=== PATIENT | male | born 1980 | race Caucasian/White ===

== ENCOUNTER → 2017-12-30 | Outpatient (REF) | payer OTHER | LOC: ZZSENDIN 12:16 | PROVIDERS: ATTEND Physician Assistant | DX: D22.9 Melanocytic nevi, unspecified (principal) | CPT/HCPCS: 88305; 88313; 88344 ==

== ENCOUNTER 2018-10-27 12:55 | Emergency (ER) | payer OTHER ==
--- NOTE | 2018-10-27 13:14 | ER Report ---
History and Physical Time Seen By MD: 13:14 Hx. of Stated Complaint: pt reports pain in L chest since tuesday, denies other symptoms , feels "like something is moving in there" HPI/ROS CHIEF COMPLAINT: Chest pain HISTORY OF PRESENT ILLNESS: 38-year-old male patient presents to the emergency room with complaint of left-sided chest pain. Patient states pain seems to come and go. He notices it the most when he is sitting down at his desk. Patient denies any shortness of breath, nausea, vomiting or diarrhea. Patient states there is nothing seems to make the pain better or worse. He states that he is able to go out and be active without eliciting any of the chest pain. He denies taking any medication for this. Patient is concerned as his father recently had a four-vessel CABG and at several points throughout the year was quite ill. REVIEW OF SYSTEMS: Respiratory: No cough, no dyspnea. Cardiovascular: As noted above Gastrointestinal: No vomiting, no abdominal pain. Musculoskeletal: No back pain. Allergies: Coded Allergies: Penicillins (Verified Allergy, Mild, UNKNOWN, 06/05/14) Sulfa (Sulfonamide Antibiotics) (Verified Allergy, Mild, FEVER, 06/05/14) Home Meds No Active Prescriptions or Reported Meds Past Medical/Surgical History Patient has a past medical history of hyperlipidemia, fractures. Patient has a surgical history of bilateral knee surgery 3. Reviewed Nurses Notes: Yes Hx Smoking: No Smoking Status: Never Smoker Hx Substance Use Disorder: No Hx Alcohol Use: No Constitutional Vital Sign - Last 24 Hours 10/27/18 10/27/18 10/27/18 10/27/18 12:59 13:00 13:10 13:25 Temp 98.7 Pulse 77 87 81 Resp 16 12 14 B/P (MAP) 132/92 132/92 (105) 122/91 (101) Pulse Ox 96 96 95 O2 Delivery Room Air 10/27/18 10/27/18 10/27/18 10/27/18 13:30 13:40 13:55 14:00 Pulse 75 78 Resp 14 7 B/P (MAP) 119/91 (100) 124/84 (97) Pulse Ox 93 92 10/27/18 14:10 Pulse 87 Resp 9 Pulse Ox 91 Physical Exam General Appearance: The patient is alert, has no immediate need for airway protection and no current signs of toxicity. Respiratory: Chest is non tender, lungs are clear to auscultation. Cardiac: regular rate and rhythm Gastrointestinal: Abdomen is soft and non tender, no masses, bowel sounds normal. Musculoskeletal: Neck: Neck is supple and non tender. Extremities have full range of motion and are non tender. Skin: No rashes or lesions. DIFFERENTIAL DIAGNOSIS: After history and physical exam differential diagnosis was considered for chest pain including but not limited to myocardial ischemia, pericarditis pulmonary embolus, chest wall pain, pleural inflammation and pulmonary infectious causes. Medical Decision Making Data Points Result Diagram: 10/27/18 1327 10/27/18 1327 Laboratory Hematology Test 10/27/18 13:27 10/27/18 14:17 Red Blood Count 5.88 M/uL (4.00-5.60) Mean Corpuscular Volume 85.1 fL (80.0-96.0) Mean Corpuscular Hemoglobin 29.0 pg (26.0-33.0) Mean Corpuscular Hemoglobin Concent 34.1 g/dL (32.0-36.0) Red Cell Distribution Width 12.6 % (11.5-14.5) Mean Platelet Volume 6.1 fL (7.2-11.1) Neutrophils (%) (Auto) 58.1 % (39.4-72.5) Lymphocytes (%) (Auto) 31.3 % (17.6-49.6) Monocytes (%) (Auto) 9.3 % (4.1-12.4) Eosinophils (%) (Auto) 0.8 % (0.4-6.7) Basophils (%) (Auto) 0.5 % (0.3-1.4) Nucleated RBC Relative Count (auto) 0.1 /100WBC Neutrophils # (Auto) 3.9 K/uL (2.0-7.4) Lymphocytes # (Auto) 2.1 K/uL (1.3-3.6) Monocytes # (Auto) 0.6 K/uL (0.3-1.0) Eosinophils # (Auto) 0.1 K/uL (0.0-0.5) Basophils # (Auto) 0.0 K/uL (0.0-0.1) Nucleated RBC Absolute Count (auto) 0.01 K/uL Sodium Level 140 mmol/L (137-145) Potassium Level 4.2 mmol/L (3.5-5.0) Chloride Level 102 mmol/L (98-107) Carbon Dioxide Level 26 mmol/L (22-30) Blood Urea Nitrogen 12 mg/dl (9-21) Creatinine 0.90 mg/dl (0.66-1.25) Glomerular Filtration Rate Calc > 60.0 Random Glucose 99 mg/dl (75-110) Calcium Level 9.8 mg/dl (8.4-10.2) Total Bilirubin 0.4 mg/dl (0.2-1.3) Aspartate Amino Transf (AST/SGOT) 26 U/L (0-35) Alanine Aminotransferase (ALT/SGPT) 36 U/L (0-56) Alkaline Phosphatase 89 U/L (0-126) Troponin I < 0.012 ng/ml Total Protein 8.9 g/dl (6.3-8.2) Albumin 4.8 g/dl (3.5-5.0) Amylase Level 88 U/L (0-110) Lipase 80 U/L (23-300) Helicobacter pylori IgG Antibody Negative (NEGATIVE) Urine Color Straw Urine Clarity Clear Urine pH 6.0 pH (4.8-9.5) Urine Specific [place] 1.006 Urine Protein Negative mg/dL (NEGATIVE) Urine Glucose (UA) Negative mg/dL (NEGATIVE) Urine Ketones Negative mg/dL (NEGATIVE) Urine Blood Negative (NEGATIVE) Urine Nitrite Negative (NEGATIVE) Urine Bilirubin Negative (NEGATIVE) Urine Urobilinogen Negative mg/dL (0.2-1.9) Urine Leukocyte Esterase Negative (NEGATIVE) Urine RBC <1 /HPF (0-2/HPF) Urine WBC 1 /HPF (0-5/HPF) Urine Squamous Epithelial Cells None /LPF (</=FEW) Urine Bacteria Negative /HPF (NONE-FEW) Urine Mucus None /HPF (NONE-FEW) Chemistry Test 10/27/18 13:27 10/27/18 14:17 White Blood Count 6.8 k/uL (4.5-11.0) Red Blood Count 5.88 M/uL (4.00-5.60) Hemoglobin 17.0 g/dL (14.0-18.0) Hematocrit 50.0 % (42.0-52.0) Mean Corpuscular Volume 85.1 fL (80.0-96.0) Mean Corpuscular Hemoglobin 29.0 pg (26.0-33.0) Mean Corpuscular Hemoglobin Concent 34.1 g/dL (32.0-36.0) Red Cell Distribution Width 12.6 % (11.5-14.5) Platelet Count 324 K/uL (150-450) Mean Platelet Volume 6.1 fL (7.2-11.1) Neutrophils (%) (Auto) 58.1 % (39.4-72.5) Lymphocytes (%) (Auto) 31.3 % (17.6-49.6) Monocytes (%) (Auto) 9.3 % (4.1-12.4) Eosinophils (%) (Auto) 0.8 % (0.4-6.7) Basophils (%) (Auto) 0.5 % (0.3-1.4) Nucleated RBC Relative Count (auto) 0.1 /100WBC Neutrophils # (Auto) 3.9 K/uL (2.0-7.4) Lymphocytes # (Auto) 2.1 K/uL (1.3-3.6) Monocytes # (Auto) 0.6 K/uL (0.3-1.0) Eosinophils # (Auto) 0.1 K/uL (0.0-0.5) Basophils # (Auto) 0.0 K/uL (0.0-0.1) Nucleated RBC Absolute Count (auto) 0.01 K/uL Glomerular Filtration Rate Calc > 60.0 Calcium Level 9.8 mg/dl (8.4-10.2) Total Bilirubin 0.4 mg/dl (0.2-1.3) Aspartate Amino Transf (AST/SGOT) 26 U/L (0-35) Alanine Aminotransferase (ALT/SGPT) 36 U/L (0-56) Alkaline Phosphatase 89 U/L (0-126) Troponin I < 0.012 ng/ml Total Protein 8.9 g/dl (6.3-8.2) Albumin 4.8 g/dl (3.5-5.0) Amylase Level 88 U/L (0-110) Lipase 80 U/L (23-300) Helicobacter pylori IgG Antibody Negative (NEGATIVE) Urine Color Straw Urine Clarity Clear Urine pH 6.0 pH (4.8-9.5) Urine Specific [place] 1.006 Urine Protein Negative mg/dL (NEGATIVE) Urine Glucose (UA) Negative mg/dL (NEGATIVE) Urine Ketones Negative mg/dL (NEGATIVE) Urine Blood Negative (NEGATIVE) Urine Nitrite Negative (NEGATIVE) Urine Bilirubin Negative (NEGATIVE) Urine Urobilinogen Negative mg/dL (0.2-1.9) Urine Leukocyte Esterase Negative (NEGATIVE) Urine RBC <1 /HPF (0-2/HPF) Urine WBC 1 /HPF (0-5/HPF) Urine Squamous Epithelial Cells None /LPF (</=FEW) Urine Bacteria Negative /HPF (NONE-FEW) Urine Mucus None /HPF (NONE-FEW) Urinalysis Test 10/27/18 14:17 Urine Color Straw Urine Clarity Clear Urine pH 6.0 pH (4.8-9.5) Urine Specific [place] 1.006 Urine Protein Negative mg/dL (NEGATIVE) Urine Glucose (UA) Negative mg/dL (NEGATIVE) Urine Ketones Negative mg/dL (NEGATIVE) Urine Blood Negative (NEGATIVE) Urine Nitrite Negative (NEGATIVE) Urine Bilirubin Negative (NEGATIVE) Urine Urobilinogen Negative mg/dL (0.2-1.9) Urine Leukocyte Esterase Negative (NEGATIVE) Urine RBC <1 /HPF (0-2/HPF) Urine WBC 1 /HPF (0-5/HPF) Urine Squamous Epithelial Cells None /LPF (</=FEW) Urine Bacteria Negative /HPF (NONE-FEW) Urine Mucus None /HPF (NONE-FEW) EKG/Imaging EKG Interpretation 12 lead EKG: Rhythm: normal sinus rhythm with sinus arrhythmia, ventricular rate of 75 bpm [place]: normal QRS: normal ST segments: normal Imaging Exam type: CHEST PA LAT History: Chest Pain Comparison: None. Findings: The lungs are free of acute effusions infiltrates or edema. There is no evidence of a pneumothorax or pneumomediastinum. The cardiac swelling is normal in size. The trachea is midline. IMPRESSION: 1. No acute cardiac pulmonary process is seen Report Dictated By: Zahida Mojica MD at 10/27/2018 1:46 PM Report E-Signed By: Zahida Mojica MD at 10/27/2018 1:47 PM ED Course/Re-evaluation ED Course Patient was admitted to an exam room, history and physical were obtained. Differ ential diagnoses were considered. On examination lungs are clear, heart is regular, abdomen is soft nontender. Patient had some mild tenderness to palpation of the left side of the chest. A CBC, CMP, troponin, EKG, urinalysis, chest x-ray were done. EKG showed a normal sinus rhythm with sinus arrhythmia, chest x-ray was negative. Labs were unremarkable. I discussed findings with the patient and his . I believe that this could very well be a strain of the pectoralis muscle on the left side. The reason he is having less pain with work is that the muscles loosened up and is able to reduce activities. It is my thought that the pain is worse when he is sitting down as a muscle tightens up. We will go ahead and discharge patient home at this time. He states Tylenol or ibuprofen as if pain. He is follow-up with his primary care provider in the next week. He is to return to emergency room if condition worsens. Patient verbalized understanding and agreement with plan. Decision to Disposition Date: Oct 27, 2018 Decision to Disposition Time: 14:20 Depart Departure Latest Vital Signs Vital Signs Date Time Temp Pulse Resp B/P (MAP) Pulse Ox O2 Delivery O2 Flow Rate FiO2 10/27/18 14:10 87 9 91 10/27/18 14:00 124/84 (97) 10/27/18 12:59 98.7 Room Air Impression: Primary Impression: Chest pain Condition: Improved Disposition: HOME OR SELF-CARE New Scripts No Active Prescriptions or Reported Meds Patient Instructions: Chest Pain (ED) Additional Instructions: Increase fluid intake. Get plenty of rest. Follow up with your primary care provider in the next week. I think that this is likely a muscle strain that seems to tighten up when you are sitting down. Take Tylenol or Ibuprofen as needed for pain. Return to the ER if condition worsens. Problem Qualifiers Primary Impression: Chest pain Chest pain type: other chest pain Qualified Codes: R07.89 - Other chest pain MIREYA CUI Oct 27, 2018 13:14
[2018-10-27] MEDS ORDERED: ASPIRIN 81 MG CHEW PO ONE (13:20)
[2018-10-27 13:37] LABS: PLATELET COUNT, AUTOMATED 324 K/uL (150-450)
--- NOTE | 2018-10-27 13:45 | EKG ---
FACILITY: [facility] [place] PATIENT NAME: HALEIGH TRACY : [id number] MR: [id number] V: [id number] EXAM DATE: ORDERING PHYSICIAN: MIREYA CUI TECHNOLOGIST: MIRTA Test Reason : CP Blood Pressure : / mmHG Vent. Rate : 075 BPM Atrial Rate : 075 BPM P-R Int : 138 ms QRS Dur : 092 ms QT Int : 378 ms P-R-T Axes : 010 039 039 degrees QTc Int : 422 ms Normal sinus rhythm with sinus arrhythmia Normal ECG No previous ECGs available Confirmed by LUCIE STOCKTON ([id number]) on 10/27/2018 10:37:30 PM Referred By: NAVEED Confirmed By:LUCIE STOCKTON
--- NOTE | 2018-10-27 13:51 | RADIOLOGY IMAGING REPORT ---
FACILITY: [facility] PATIENT NAME: Juan Francisco Cabral : 1980 MR: [id number] V: [id number] EXAM DATE: ORDERING PHYSICIAN: MIREYA CUI TECHNOLOGIST: Location: [facility] Patient: Juan Francisco Cabral : 1980 Visit/Account:[id number] Date of Sevice: 10/27/2018 Exam type: CHEST PA LAT History: Chest Pain Comparison: None. Findings: The lungs are free of acute effusions infiltrates or edema. There is no evidence of a pneumothorax o r pneumomediastinum. The cardiac swelling is normal in size. The trachea is midline. IMPRESSION: 1. No acute cardiac pulmonary process is seen Report Dictated By: Zahida Mojica MD at 10/27/2018 1:46 PM Report E-Signed By: Zahida Mojica MD at 10/27/2018 1:47 PM WSN:[id number]
[2018-10-27 14:00] VITALS: BP 124/84
== END 2018-10-27 14:45 | disposition home or self-care (01) ==
LOC: ER 13:12
DX: R07.89 Other chest pain (principal)
CPT/HCPCS: 71046; 81001; 82040; 82150; 82247; 82310; 82374; 82435; 82565; 82947; 83690; 84075; 84132; 84155; 84295; 84450; 84460; 84484; 84520; 85025; 86677; 93005; 99284